=== PATIENT | male | born 1960 | race Caucasian/White ===

== ENCOUNTER 2024-02-10 15:32 | Emergency (ER) | payer MEDICARE, SELFPAY ==
[2024-02-10 15:36] VITALS: BP 117/86
[2024-02-10 16:18] VITALS: BMI 32.2
--- NOTE | 2024-02-10 16:36 | ED.GENMED ---
History of Present Illness
General
Chief Complaint: Urinary Symptoms
Time Seen by Provider: 02/10/24 16:36
Travel History
Have you had any contact with someone who has COVID-19?: No
Do you have any symptoms of coronavirus? Fever > 100 degrees, chills, cough, shortness of breath, sore throat, loss of taste or smell, muscle aches, or headache?: No
History of Present Illness
History of Present Illness:
HPI: The patient had abrupt onset left testicular pain that radiated to the left groin and left flank. The symptoms dramatically worsened but then improved after he took Advil. Just prior to my initial evaluation a few hours after the symptoms
started, his pain had resolved. Incidentally, he is currently on a ketogenic diet.
EXAM:
GENERAL: Well appearing in no distress
HEENT: Moist oral mucosa
CARDIOVASCULAR: No murmurs, normal heart rate, regular rhythm, No chest wall tenderness
PULMONARY: No respiratory distress, breath sounds are clear and equal
ABDOMEN: Soft with no peritoneal signs, no tenderness, no CVA tenderness, no testicular tenderness
NEUROLOGIC: Excellent strength all extremities, no coordination deficits
PSYCHIATRIC: Appropriate mental status, normal insight and judgement
EXTREMITIES: Nontender, no edema, moves all extremities equally
SKIN: No rash, no lesions
TIME OF INITIAL ENCOUNTER: 4:15 PM
NUMBER AND COMPLEXITY OF PROBLEMS ADDRESSED AT THE ENCOUNTER
� Chronic conditions affecting care: High blood pressure
� Acute Exacerbation and/or Progression of Chronic Illness: This is an acute problem
� Differential Diagnosis includes: Ureteral stone, UTI/pyelonephritis, testicular etiology of pain very unlikely as he has no testicular tenderness on exam
AMOUNT AND/OR COMPLEXITY OF DATA TO BE REVIEWED AND ANALYZED
� I performed an independent evaluation of and my interpretation is:
EKG:
CT: CT imaging shows no acute abnormality
X-rays:
Laboratory Studies: BC and chemistries unremarkable, urinalysis shows blood likely due to recently passed stone and ketones as patient is on a ketogenic diet
Other:
� Review of other/old records: No old records available for review
� Clinical information was obtained by an independent historian: I spoke to at bedside
� Prescriptions/Medications Considered but not given:
� Further testing considered but not performed:
RISK OF COMPLICATIONS AND/OR MORBIDITY OR MORTALITY OF PATIENT MANAGEMENT
� Social determinants of health affecting care: Lives at home
� Discussion with other providers:
� Escalation of care including admission/observation vs risk of discharge considered: The patient's pain improved/resolved after taking Motrin. Imaging shows no stone. While he was in the ED at around 6 PM, the patient did pass
a stone into the strainer. No pain at time of discharge.
Phy Exam
Physical Exam
Physical Exam:
See HPI
Course
Orders/Labs/Results
Orders:
Orders
02/10/24 16:34
CMP [Comprehensive Metabolic Panel] Urgent
Complete Blood Count/With Diff Urgent
02/10/24 16:42
CT Abd/pel Without Iv Or Oral Urgent
Comment:
Reason For Exam: abrupt severe L side pain
02/10/24 16:50
Urinalysis Reflex To Culture Urgent
Date Specimen was Collected: 02/10/24
Time Specimen was Collected: 16:50
Urine Microscopic Reflex Cult Urgent
Urine Culture Urgent
LOR Source: U
Specimen Description:
Date Specimen was Collected: 02/10/24
Time Specimen was Collected: 16:50
Abnormal Lab Results
02/10/24 02/10/24
16:34 16:50
RBC 4.17 L 10^6/uL
(4.70-6.10)
Hct 37.9 L %
(39.0-52.0)
MCH 31.2 H pg
(27.0-31.0)
Sodium 134 L mmol/L
(135-145)
Chloride 97 L mmol/L
(98-107)
Glucose 101 H mg/dl
(70-99)
Urine Ketones 2+ A
(Negative)
Ur Occult Blood Reflex 3+ A
(Negative)
Urine RBC 21-25 A /HPF
(0-2)
Urine Bacteria (Reflex) Many A
(Negative)
02/10/24 16:34
02/10/24 16:34
Vital Signs
Initial and Last Documented VS:
Initial Vital Signs
Temp Pulse Resp BP Pulse Ox
97.7 F 81 18 117/86 99
02/10/24 15:36 02/10/24 15:36 02/10/24 15:36 02/10/24 15:36 02/10/24 15:36
Last Documented Vital Signs
Temp Pulse Resp BP Pulse Ox
97.7 F 69 18 125/56 95
02/10/24 15:36 02/10/24 17:15 02/10/24 17:15 02/10/24 17:00 02/10/24 17:00
*Critical Care Note
Total Time (30-74mins, 75-104mins- exclusive of procedures): Not Applicable
ED Attending Note
-
Portions of this chart may have been created with voice recognition software.� Occasional wrong word or��sound alike� substitutions may have occurred due to the inherent limitations of voice recognition software.
Discharge Plan
Departure
Patient Disposition: Home (Routine Discharge)
Date of Disposition: 02/10/24
Time of Disposition: 18:33
Patient with high blood pressure during this ER visit?: Yes
Discharge Problem:
Ureteral calculus, left
Instructions: Kidney Stones (DC), BLOOD PRESSURE
Referrals:
Caio Fang MD [Family Provider] -
Joseph Dinero MD [Active] - Follow up in 2-3 days
Activity Restrictions/Additional Instructions:
Blood work is normal and CAT scan shows no sign of kidney stone. There were no other stones seen in the kidney�you incidentally have a small cyst in the anterior midpole of the right kidney. Urinalysis shows no sign of infection but did show blood
and ketones. If symptoms recur I do recommend taking Advil again. Return here if worse. I have given you the contact information for a local urologist
Interventions
Interventions:
*Risk Screen - Suicide Last Done: 02/10/24 15:36
*General Assessment Last Done: 02/10/24 15:36
*Neglect/Abuse Screening Last Done: 02/10/24 15:36
*ED COVID-19 Vaccine History Last Done: 02/10/24 16:18
ED-Male Genitourinary Assessment Last Done: 02/10/24 16:59
Discharge Date and Time
Print Language: [place] CITIZEN
[2024-02-10 16:40] LABS: % Eosinophils 1.3 % (0-6); % Immature Granulocytes 0.2 % (0-0.5); % Lymphocytes 25.7 % (20.5-51.1); % Monocytes 9.3 % (1.7-9.3); % Neutrophils 62.5 % (42.2-75.2); Absolute Basophils 0.1 10^3/uL (0-0.2); Absolute Eosinophils 0.1 10^3/uL (0-0.7); Absolute Lymphocytes 1.4 10^3/uL (1.2-3.4); Absolute Monocytes 0.5 10^3/uL (0.1-0.6); Absolute Neutrophils 3.3 10^3/uL (1.4-6.5); Hematocrit 37.9 % (39.0-52.0); Mean Corp Hgb Conc. 34.3 g/dL (33.0-37.0); Mean Corpuscular Hgb 31.2 pg (27.0-31.0); Mean Corpuscular Volume 90.9 fL (80.0-94.0); Mean Platelet Volume 8.5 fL (7.4-10.4); Nucleated Red Blood Cells % 0 % (-); Platelet Count 202 10^3/uL (130-400); Red Blood Cell Count 4.17 10^6/uL (4.70-6.10); Red Cell Dist. Width 13.1 % (11.5-14.5); White Blood Cell Count 5.3 10^3/uL (4.8-10.8)
[2024-02-10 16:52] VITALS: BP 129/95
[2024-02-10 16:56] LABS: ALT (SGPT) 28 U/L (0-50); AST (SGOT) 29 U/L (17-59); Albumin 4.3 g/dl (3.5-5.0); Alkaline Phosphatase 56 U/L (38-126); Blood Urea Nitrogen 19 mg/dl (9-20); Calcium 9.4 mg/dl (8.4-10.2); Carbon Dioxide 28 mmol/L (22-30); Chloride 97 mmol/L (98-107); Estimated Creatinine Clearance 110 ml/min; Glucose 101 mg/dl (70-99); Sodium 134 mmol/L (135-145); Total Bilirubin 0.7 mg/dl (0.2-1.3); Total Protein 6.8 g/dl (6.3-8.2); eGFR > 60.00
[2024-02-10 17:00] VITALS: BP 125/56
[2024-02-10 17:02] LABS: Urine Albumin Negative (Neg - Trace); Urine Bilirubin Negative (Negative); Urine Character Clear (Clear); Urine Color Yellow; Urine Glucose Negative (Negative); Urine Ketone 2+ (Negative); Urine Leukocyte Negative (Negative); Urine Nitrite Negative (Negative); Urine Occult Blood 3+ (Negative); Urine Urobilinogen Negative (Neg - 1+)
[2024-02-10 17:09] LABS: Urine Mucus Many; Urine Red Blood Cell 21-25 /HPF (0-2); Urine White Cell 0-2 /HPF (0-5)
[2024-02-10 17:10] LABS: Urine Bacteria Many (Negative)
[2024-02-10 18:00] VITALS: BP 139/75
== END 2024-02-10 18:49 | disposition home or self-care (01) ==
LOC: EMR 15:32
PROVIDERS: EMERGENCY PHYSICIAN Emergency Medicine; FAMILY PHYSICIAN Family Medicine
DX: N20.1 Calculus of ureter (principal); I10 Essential (primary) hypertension
CPT/HCPCS: 99284; 51798; 74176; 80053; 81003; 81015; 85025; 87086

== ENCOUNTER 2025-05-12 16:24 | Emergency (ER) | payer SELFPAY ==
[2025-05-12 16:25] VITALS: BP 169/99
[2025-05-12] MEDS: TYLENOL 650 MG PO (17:38)
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
[2025-05-12 19:18] VITALS: BP 169/101
== END 2025-05-12 19:22 | disposition home or self-care (01) ==
LOC: EMR 16:24
PROVIDERS: EMERGENCY PHYSICIAN Student in an Organized Health Care Education/Training Program; FAMILY PHYSICIAN Family Medicine
DX: S06.0XAA Concussion with loss of consciousness status unknown, initial encounter (principal); S16.1XXA Strain of muscle, fascia and tendon at neck level, initial encounter; S00.01XA Abrasion of scalp, initial encounter; S00.211A Abrasion of right eyelid and periocular area, initial encounter; V89.2XXA Person injured in unspecified motor-vehicle accident, traffic, initial encounter; I10 Essential (primary) hypertension
CPT/HCPCS: 99285; 70450; 72072; 72125